=== PATIENT | male | born 1960 | race Caucasian/White ===

== ENCOUNTER 2018-12-10 11:42 | Day surgery (SDC) | payer BC ==
[2018-12-10] MEDS ORDERED: MIDAZOLAM 1 MG/ML 2 ML INJ ×2 (13:53)
[2018-12-10] MEDS ORDERED: FENTAnyl 50 MCG/ML VIAL (13:54)
== END 2018-12-10 15:12 | disposition home or self-care (01) ==
LOC: GIL 11:42
DX: Z12.11 Encounter for screening for malignant neoplasm of colon (principal); K64.8 Other hemorrhoids; K44.9 Diaphragmatic hernia without obstruction or gangrene; K21.0 Gastro-esophageal reflux disease with esophagitis
CPT/HCPCS: 43239; 88305